=== PATIENT | female | born 1995 | race Caucasian/White ===

== ENCOUNTER 2021-03-12 23:53 | Emergency (ER) | payer OTHER, BC ==
[~2021-03-12] VITALS: Ht 157.5 cm; Wt 68.0 kg
[2021-03-12 23:55] VITALS: BP 115/68
[2021-03-13] MEDS ORDERED: mupirocin 2% ointment 22GM TP STA (01:53)
[2021-03-13] MEDS ORDERED: ibuprofen tablet 400 MG TABLET PO ONE (01:55)
[2021-03-13] MEDS ORDERED: acetaminophen 325mg tablet PO ONE (01:55)
[2021-03-13] MEDS ORDERED: MUPI22OI30 TOP (01:59)
== END 2021-03-13 02:18 | disposition home or self-care (01) ==
LOC: ER 23:54
DX: T23.201A Burn of second degree of right hand, unspecified site, initial encounter (principal); T31.0 Burns involving less than 10% of body surface; J34.89 Other specified disorders of nose and nasal sinuses; X08.8XXA Exposure to other specified smoke, fire and flames, initial encounter; V87.7XXA Person injured in collision between other specified motor vehicles (traffic), initial encounter; Y93.89 Activity, other specified; Y92.89 Other specified places as the place of occurrence of the external cause; Y99.8 Other external cause status
CPT/HCPCS: 16000; 99283; 99284